=== PATIENT | female | born 1950 | race Caucasian/White ===

== ENCOUNTER 2018-10-19 14:33 | Emergency (ER) | payer MEDICARE, MEDICAID ==
[~2018-10-19] VITALS: Ht 157.5 cm; Wt 70.8 kg
[2018-10-19 14:41] VITALS: Ht 157.5 cm; Wt 70.8 kg
[2018-10-19 17:30] VITALS: BP 147/89
== END 2018-10-19 17:30 | disposition home or self-care (01) ==
LOC: ED 14:33
DX: R51 Headache (principal); J45.909 Unspecified asthma, uncomplicated; I10 Essential (primary) hypertension; E78.00 Pure hypercholesterolemia, unspecified; Z88.1 Allergy status to other antibiotic agents

== ENCOUNTER 2019-05-24 13:03 | Emergency (ER) | payer MEDICARE, MEDICAID ==
[~2019-05-24] VITALS: Ht 157.5 cm; Wt 67.6 kg
[2019-05-24 13:10] VITALS: Ht 157.5 cm; Wt 67.6 kg
[2019-05-24 15:48] VITALS: BP 136/66
== END 2019-05-24 15:48 | disposition home or self-care (01) ==
LOC: ED 13:03
DX: J18.9 Pneumonia, unspecified organism (principal); J45.909 Unspecified asthma, uncomplicated; I10 Essential (primary) hypertension; E78.00 Pure hypercholesterolemia, unspecified; Z88.1 Allergy status to other antibiotic agents
CPT/HCPCS: J0696

== ENCOUNTER 2020-01-25 15:24 | Emergency (ER) | payer MEDICARE, MEDICAID ==
[~2020-01-25] VITALS: Ht 157.5 cm; Wt 73.5 kg
[2020-01-25 15:31] VITALS: Ht 157.5 cm; Wt 73.5 kg
[2020-01-25 16:34] LABS: BASOPHIL % 1.5 % (0-2); PLATELET COUNT 257 x10^3mcL (130-400)
[2020-01-25 16:41] LABS: CALCIUM 8.4 mg/dL (8.5-10.1); CARBON DIOXIDE 28.5 mmol/L (21-32); CHLORIDE SERUM 107 mmol/L (98-107); CREATININE SERUM 0.9 mg/dL (0.6-1.0); GFR1 > 60 mL/min; GLUCOSE SERUM 112 mg/dL (74-106); POTASSIUM SERUM 3.9 mmol/L (3.5-5.1); SODIUM SERUM 144 mmol/L (136-145)
[2020-01-25 16:46] LABS: ALBUMIN 3.6 g/dL (3.4-5.0); ALKALINE PHOSPHATASE 57 U/L (46-116); ALT/SGPT 60 U/L (14-59); AST/SGOT 35 U/L (15-37); BILIRUBIN TOTAL 0.3 mg/dL (0.20-1.00); TOTAL PROTEIN, SERUM 7.6 g/dL (6.4-8.2)
[2020-01-25 17:35] LABS: AMPHETAMINE QUAL UR NONE DETECTED (See below)
[2020-01-25 18:49] VITALS: BP 151/67
== END 2020-01-25 18:49 | disposition home or self-care (01) ==
LOC: ED 15:24
PROVIDERS: Emergency Medicine
DX: R07.89 Other chest pain (principal); J45.909 Unspecified asthma, uncomplicated; I10 Essential (primary) hypertension; E78.00 Pure hypercholesterolemia, unspecified; Z85.118 Personal history of other malignant neoplasm of bronchus and lung; Z88.1 Allergy status to other antibiotic agents
CPT/HCPCS: 83880; J1885; Q0092